=== PATIENT | female | born 1960 | race Caucasian/White ===

== ENCOUNTER → 2017-01-08 | Outpatient (CLI) | payer BC ==
[2017-01-08 10:34] LABS: BASO % 0.7 %; BASO ABS # 0.04 K/uL (0-0.2); COMPLETE YES; EOS % 3.7 %; HEMATOCRIT 43.1 % (37-47); IG% 0.3 %; LYMPH % 25.3 %; MEAN CELL VOLUME 95.1 fL (80-100); MEAN CORPUSCULAR HEMOGLOBIN 32.5 pg (25-34); MEAN CORPUSCULAR HGB CONC 34.1 g/dl (32-36); MEAN PLATELET VOLUME 14.3 fL (7.4-10.4); MONO % 7.2 %; NEUT % 62.8 %; PLATELET COUNT 169 K/uL (130-400); RED BLOOD COUNT 4.53 M/uL (4.2-5.4); WHITE BLOOD COUNT 5.94 K/uL (4.8-10.8)
[2017-01-08 12:23] LABS: CALCIUM 8.8 mg/dl (8.5-10.1)
[2017-01-08 12:25] LABS: ALT/SGPT 31 U/L (12-78); BLOOD UREA NITROGEN 13 mg/dl (7-18); BUN/CREATININE RATIO 15.2 (10-20); CARBON DIOXIDE 28 mmol/L (21-32); CHLORIDE 107 mmol/L (98-107); CHOLESTEROL 211 mg/dl (0-200); CREATININE 0.88 mg/dl (0.60-1.20); GLUCOSE 92 mg/dl (70-99); POTASSIUM 3.8 mmol/L (3.5-5.1); SODIUM 141 mmol/L (136-145); TRIGLYCERIDES 85 mg/dl (0-150); VERY LOW DENSITY LIPOPROT CALC 17 mg/dl
[2017-01-08 12:36] LABS: ALB/GLOB RATIO 1.3 (0.9-2); ALKALINE PHOSPHATASE 56 U/L (45-117); AST/SGOT 21 U/L (15-37); CHOLESTEROL/HDL RATIO 3.1; HDL CHOLESTEROL 69 mg/dl; LDL CHOLESTEROL CALCULATED 125 mg/dl
[2017-01-08 14:30] LABS: LYME DISEASE AB IGG NEG (NEG)
[2017-01-08 14:32] LABS: LYME DISEASE AB IGM NEG (NEG)
== END | disposition home or self-care (01) ==
LOC: C.LAB1850 09:40
PROVIDERS: ATTEND Physician Assistant
DX: Z00.00 Encounter for general adult medical examination without abnormal findings (principal); E55.9 Vitamin D deficiency, unspecified

== ENCOUNTER → 2017-02-07 | Outpatient (CLI) | payer BC ==
--- NOTE | 2017-02-07 12:18 | MAMMOGRAPHY REPORT ---
BILATERAL DIGITAL SCREENING MAMMOGRAM TOMOSYNTHESIS WITH CAD: 02/07/2017 CLINICAL HISTORY: Routine screening. TECHNIQUE: Bilateral breast tomosynthesis in addition to standard 2D mammography was performed. Curre nt study was also evaluated with a Computer Aided Detection (CAD) system. COMPARISON: Comparison is made to exams dated: 02/06/2016 mammogram, 02/01/2015 mammogram, 12/29/2013 m ammogram, 11/17/2012 mammogram, 11/14/2011 mammogram - [facility], and 08/19/2006. BREAST COMPOSITION: There are scattered areas of fibroglandular density in both breasts. FINDINGS: There is a new, incompletely visualized 6 mm asymmetry in the far posterior right breast, a long the posterior nipple line on the CC view. It is unclear if this projects superiorly or inferior ly on the MLO view. Additional spot compression tomosynthesis views and possibly ultrasound are bala mmended, although this asymmetry does not have definite masslike features on the tomosynthesis images . There are scattered benign-appearing calcifications bilaterally. No other suspicious mass, architectu ral distortion or cluster of microcalcifications is seen. IMPRESSION: ACR BI-RADS CATEGORY 0: INCOMPLETE EVALUATION: NEED ADDITIONAL IMAGING EVALUATION The new, incompletely visualized 6 mm asymmetry in the far posterior right breast needs additional ev aluation. The patient will be called to schedule an appointment. Approximately 10% of breast cancers are not detected with mammography. A negative mammographic report should not delay biopsy if a clinically suggestive mass is present. Palma Grace M.D. ay/:02/07/2017 12:12:02 Rehabilitation Teacher: Antoni DEE(Marianna)(M), [facility] letter sent: Addl Imaging 0 BI-RADS Code: ACR BI-RADS Category 0: Incomplete Evaluation: Need Additional Imaging Evaluation
== END | disposition home or self-care (01) ==
LOC: C.MAMM 09:16
PROVIDERS: ATTEND Obstetrics & Gynecology
DX: Z12.31 Encounter for screening mammogram for malignant neoplasm of breast (principal); N64.89 Other specified disorders of breast

== ENCOUNTER → 2017-02-12 | Outpatient (CLI) | payer BC ==
--- NOTE | 2017-02-12 12:43 | MAMMOGRAPHY REPORT ---
UNILATERAL RIGHT DIGITAL DIAGNOSTIC MAMMOGRAM TOMOSYNTHESIS AND TARGETED RIGHT ULTRASOUND: 02/12/2017 CLINICAL HISTORY: 56 year-old woman called back from screening mammography for an incompletely visual ized 6 mm asymmetry in the far posterior right breast, along the posterior nipple line on the CC view . TECHNIQUE: Spot compression right CC and MLO tomosynthesis images with reconstructed C-view were obt ained. COMPARISON: Comparison is made to exams dated: 02/07/2017 mammogram, 02/06/2016 mammogram, 02/01/2015 m ammogram, 12/29/2013 mammogram, 11/17/2012 mammogram, and 11/14/2011 mammogram - [facility] enter. BREAST COMPOSITION: There are scattered areas of fibroglandular density in the right breast. FINDINGS: There is effacement of the 6 mm asymmetry on the supplemental spot compression right CC francis osynthesis images. There is no evidence of a persistent mass or persistent architectural distortion in the far posterior aspect of the right breast. No corresponding abnormality is seen on the spot co mpression MLO tomosynthesis images. Targeted ultrasound was performed in the right breast in the 12:00, 1:00, retroareolar, 5:00 and 6:00 axes. Sonographically normal tissue is seen without a discrete solid or cystic mass. IMPRESSION: ACR-BI-RADS CATEGORY 3: PROBABLY BENIGN, TARGETED ULTRASOUND ACR-BI-RADS CATEGORY 3: PRO BABLY BENIGN There is effacement of the 6 mm asymmetry in the far posterior right breast with the spot compression tomosynthesis CC view, and no suspicious sonographic oral was identified. However, given the conspi cuous nature of the asymmetry on the screening mammogram from 02/07/2017, a short interval follow-up right diagnostic mammogram and possible ultrasound is recommended to ensure stability in 6 months. These results and recommendations were discussed with the patient at the time of the exam. She tenta tively scheduled the follow-up appointment prior to leaving our department. Approximately 10% of breast cancers are not detected with mammography. A negative mammographic report should not delay biopsy if a clinically suggestive mass is present. Palma Grace M.D. ay/:02/12/2017 11:06:21 Green Building Energy Engineer: Antonia FERNANDEZ)(Nazia), [facility] letter sent: Follow Up Recommended 3 BI-RADS Code: ACR-BI-RADS Category 3: Probably Benign Ultrasound BI-RADS: ACR-BI-RADS Category 3: Pr obably Benign
== END | disposition home or self-care (01) ==
LOC: C.MAMM 10:22
PROVIDERS: ATTEND Obstetrics & Gynecology
DX: N64.89 Other specified disorders of breast (principal)

== ENCOUNTER → 2017-09-15 | Day surgery (SDC) | payer BC, OTHER ==
[2017-09-04 08:21] VITALS: Ht 162.6 cm; Wt 77.3 kg
[~2017-09-15] VITALS: Ht 162.6 cm; Wt 77.3 kg
[~2017-09-15] MED LIST: ASCA500 PO; CHOL400T5 PO; FERR324T PO; IBUP-1050 PO; LIDOCAINE HCL 2% 2 ML VIAL (20MG/ML) ONE; PROPOFOL IV EMULSION 10 MG/ML 20 ML VIAL IV ONE; SODIUM CHLORIDE 0.9% 500ML 500 ML IV ONE
[2017-09-15 13:51] VITALS: TEMP 36.6
--- NOTE | 2017-09-15 14:08 | Endo History and Physical ---
History & Physical Date of Service: Sep 15, 2017. Chief Complaint: Family history of colon cancer (mother). Referring Physician: Nasima Linder PA-C History of Present Illness 57 yo CF who presents for colonoscopy secondary to family history of colon cancer (mother). Past Surgical History Hx Cardiac Surgery: No Hx Internal Defibrillator: No Hx Pacemaker: No Hx Abdominal Surgery: Yes (HYSTERECTOMY) Hx of Implantable Prosthesis: No Hx Post-Op Nausea and Vomiting: No Hx Cancer Surgery: No Hx Thoracic Surgery: No Hx Orthopedic: No Hx Urinary Tract Surgery: No Family History Colon CA Social History Smoking Status: Former Smoker Hx Substance Use: No Hx Alcohol Use: Yes (4-5 BEERS A WEEK) Allergies Coded Allergies: Codeine (Verified Allergy, Mild, ITCHING, 09/04/17) Uncoded Allergies: PREFUMES OR CHEMICAL SMELLS- THROAT CLOSES (Allergy, Unknown, 09/02/02) Current Medications Reported Home Medications Medications Dose Route/Sig Max Daily Dose Days Date Category Advil (Ibuprofen) 200 Mg Tab 200 Mg PO PRN 09/04/17 Reported Vitamin C (Ascorbic Acid) 500 Mg Tab 500 Mg PO QAM 09/04/17 Reported Iron Supplement (Ferrous Gluconate) 324 Mg Tab 324 Mg PO DAILY 09/04/17 Reported Vitamin D (Cholecalciferol) 400 Unit Tab 800 Units PO QAM 09/04/17 Reported Vital Signs Weight (Kilograms): 77.27 Height (Feet): 5 Height (Inches): 4 Date Time Temp Pulse Resp B/P (MAP) Pulse Ox O2 Delivery O2 Flow Rate FiO2 09/15/17 13:51 36.6 66 18 125/76 (92) 98 Room Air Physical Exam General Appearance: WD/WN, no apparent distress Respiratory/Chest: Auscultation: breath sounds normal Cardiovascular: Heart Auscultation: RRR Abdomen: Bowel Sounds: normal Inspection & Palpation: soft, non-distended, no tenderness, guarding & rebound Assessment and Plan Assessment: 57 yo CF who presents for colonoscopy secondary to family history of colon cancer (mother). Plan: Proceed with colonoscopy.
--- NOTE | 2017-09-15 14:45 | Discharge Instructions ---
Endoscopy Patient Instructions Date / Procedure(s) Performed Sep 15, 2017. Colonoscopy Allergy Information Coded Allergies: Codeine (Verified Allergy, Mild, ITCHING, 09/04/17) Uncoded Allergies: PREFUMES OR CHEMICAL SMELLS- THROAT CLOSES (Allergy, Unknown, 09/02/02) Discharge Date / Findings Sep 15, 2017. Colon polyp Diverticulosis Internal hemorrhoids Medication Instructions Stopped Medication(s): stopped supplements on Friday OK to resume all medications today as prescribed Reported Home Medications Medications Dose Route/Sig Max Daily Dose Days Date Category Advil (Ibuprofen) 200 Mg Tab 200 Mg PO PRN 09/04/17 Reported Vitamin C (Ascorbic Acid) 500 Mg Tab 500 Mg PO QAM 09/04/17 Reported Iron Supplement (Ferrous Gluconate) 324 Mg Tab 324 Mg PO DAILY 09/04/17 Reported Vitamin D (Cholecalciferol) 400 Unit Tab 800 Units PO QAM 09/04/17 Reported Provider Instructions Activity Restrictions - No exercising or heavy lifting for 24 hours. - Do not drink alcohol the day of the procedure. - Do not drive a car or operate machinery until the day after the procedure. - Do not make any important decisions or sign important papers in 24 hours after the procedure. Following Day: - Return to full activity which may include returning to work/school. Diet Start your diet with liquids and light foods (jello, soup, juice, toast). Then eat your usual diet if not nauseated. Treatment For Common After Affects For mild abdominal pain, bloating, or excessive gas: - Rest - Eat lightly - Lie on right side Follow-Up Information Follow-up with Nasima Linder PA-C as scheduled Anesthesia Information What You Should Know You have had a procedure that required some medicine to reduce anxiety and discomfort. This treatment is called moderate sedation. After receiving the treatment, you may be sleepy, but you will be able to breathe on your own. The effects of the treatment may last for several hours. Follow these instructions along with Activity/Diet recommendations noted above: * Do NOT do anything where dizziness or clumsiness would be dangerous. * Rest quietly at home today, then you can be up and about tomorrow. * Have a responsible person stay with you the rest of today. * You may have had an I.V. today. If so, you may take the dressing off later today. Recommendations Call your doctor if: * Trouble breathing * Continuous vomiting for more than 24 hours * Temperature above 101 degrees * Severe abdominal pain or bloating * Pain not relieved by pain medicine ordered * There is increased drainage or redness from any incision * A large amount of rectal bleeding greater than 2-3 tablespoons. (If you had a polyp/s removed or have hemorrhoids, a small amount of blood - from the rectum is to be expected.) * You have any unanswered questions or concerns. IN THE EVENT OF A SERIOUS EMERGENCY, GO TO THE NEAREST EMERGENCY ROOM Your discharge instructions were prepared by provider Lalit Jon. Patient Instructions Signature Page Emilee Rice Patient (or Guardian) Signature/Date: I have read and understand the instructions given to me by my caregivers. Caregiver/RN/Doctor Signature/Date: The above-named patient and/or guardian has received patient instructions on this date. + Original Patient Signature Page (only) stays with chart. Please make copy for patient.
--- NOTE | 2017-09-15 14:56 | GI REPORT ---
Procedure Date: 09/15/2017 1:53 PM Procedure: Colonoscopy Indications: Family history of colon cancer in a first-degree relative Medicines: Monitored Anesthesia Care Complications: No immediate complications. Estimated Blood Loss: Estimated blood loss: none. Procedure: Pre-Anesthesia Assessment: - Prior to the procedure, a History and Physical was performed, and patient medications and allergies were reviewed. The patient's tolerance of previous anesthesia was also reviewed. The risks and benefits of the procedure and the sedation options and risks were discussed with the patient. All questions were answered, and informed consent was obtained. Prior Anticoagulants: The patient has taken no previous anticoagulant or antiplatelet agents. ASA Grade Assessment: II - A patient with mild systemic disease. After reviewing the risks and benefits, the patient was deemed in satisfactory condition to undergo the procedure. After I obtained informed consent, the scope was passed under direct vision. Throughout the procedure, the patient's blood pressure, pulse, and oxygen saturations were monitored continuously. The On-site loaner was introduced through the anus and advanced to the terminal ileum. The colonoscopy was performed without difficulty. The patient tolerated the procedure well. The quality of the bowel preparation was good. The ileocecal valve, appendiceal orifice, and rectum were photographed. Findings: The perianal and digital rectal examinations were normal. A 5 mm polyp was found in the cecum. The polyp was sessile. The polyp was removed with a hot snare. Resection and retrieval were complete. Multiple small-mouthed diverticula were found in the sigmoid colon. Non-bleeding internal hemorrhoids were found during retroflexion. The hemorrhoids were small. Impression: - One 5 mm polyp in the cecum, removed with a hot snare. Resected and retrieved. - Diverticulosis in the sigmoid colon. - Non-bleeding internal hemorrhoids. Recommendation: - Resume previous diet. - Continue present medications. - Repeat colonoscopy for surveillance based on pathology results. - Return to primary care physician as previously scheduled. Lalit Jon, DO 09/15/2017 2:56:41 PM This report has been signed electronically. Note Initiated On: 09/15/2017 1:53 PM I attest to the content of the Intraoperative Record and orders documented therein, exceptions below
[2017-09-15 15:18] VITALS: BP 111/70; PULSE 64; O2SAT 99
--- NOTE | 2017-09-15 15:37 | Anesthesiology Progress Note ---
Anesthesia Post Op Note Date & Time Sep 15, 2017 at 15:37 Vital Signs Pain Intensity: 0 Vital Signs Past 12 Hours Date Time Temp Pulse Resp B/P (MAP) Pulse Ox O2 Delivery O2 Flow Rate FiO2 09/15/17 15:18 64 18 111/70 (84) 99 Room Air 09/15/17 15:03 67 18 116/71 (86) 99 Room Air 09/15/17 14:48 82 16 92/70 (77) 98 Room Air 09/15/17 13:51 36.6 66 18 125/76 (92) 98 Room Air Notes Mental Status: alert / awake / arousable, participated in evaluation Pt Amnestic to Procedure: Yes Nausea / Vomiting: adequately controlled Pain: adequately controlled Airway Patency, RR, SpO2: stable & adequate BP & HR: stable & adequate Hydration State: stable & adequate Anesthetic Complications: no major complications apparent
== END | disposition home or self-care (01) ==
LOC: C.GI 13:31
PROVIDERS: ATTEND Internal Medicine
DX: Z12.11 Encounter for screening for malignant neoplasm of colon (principal); D12.0 Benign neoplasm of cecum; K57.30 Diverticulosis of large intestine without perforation or abscess without bleeding; K64.8 Other hemorrhoids; Z80.0 Family history of malignant neoplasm of digestive organs; Z87.891 Personal history of nicotine dependence; Z88.5 Allergy status to narcotic agent

== ENCOUNTER → 2017-09-17 | Outpatient (CLI) | payer OTHER ==
[~2017-09-17] MED LIST changes: -LIDOCAINE HCL 2% 2 ML VIAL (20MG/ML) ONE; -PROPOFOL IV EMULSION 10 MG/ML 20 ML VIAL IV ONE; -SODIUM CHLORIDE 0.9% 500ML 500 ML IV ONE
--- NOTE | 2017-09-17 15:56 | MAMMOGRAPHY REPORT ---
UNILATERAL RIGHT DIGITAL DIAGNOSTIC MAMMOGRAM TOMOSYNTHESIS WITH CAD: 09/17/2017 CLINICAL HISTORY: 6 Month Follow-up Right. TECHNIQUE: Breast tomosynthesis in addition to standard 2D mammography was performed. Current study was also evaluated with a Computer Aided Detection (CAD) system. Right CC and MLO 2-D and tomosynthe sis images were obtained. COMPARISON: Comparison is made to exams dated: 02/12/2017 mammogram, 02/12/2017 ultrasound, 02/07/2017 mammogram, 02/06/2016 mammogram, 02/01/2015 mammogram, and 12/29/2013 mammogram - [facility]. BREAST COMPOSITION: There are scattered areas of fibroglandular density in the right breast. FINDINGS: The previously described asymmetry seen within the right posterior breast on the CC view is less prominent on the current exam and has the appearance of normal fibroglandular tissue on the cur rent tomosynthesis images. Additionally, the asymmetry appears similar to multiple prior exams inclu ding the 2011 exam. Findings are benign and compatible with normal fibroglandular tissue. The remai nder of the right breast is stable compared to prior exams, without suspicious masses, calcifications , or areas of architectural distortion noted. IMPRESSION: ACR BI-RADS CATEGORY 2: BENIGN The right breast asymmetry is less prominent and is benign and compatible with normal fibroglandular tissue. There is no mammographic evidence of malignancy. Return to annual mammogram screening schedu is recommended, due January 2018. The patient has been verbally notified of the results. Approximately 10% of breast cancers are not detected with mammography. A negative mammographic report should not delay biopsy if a clinically suggestive mass is present. Renee Almanza M.D. ah/:09/17/2017 08:25:00 Assistant Property Manager: Nitza DEE(Marianna)(M), [facility] letter sent: Normal 1/2 BI-RADS Code: ACR BI-RADS Category 2: Benign
== END | disposition home or self-care (01) ==
LOC: C.MAMM 08:06
PROVIDERS: ATTEND Obstetrics & Gynecology
DX: N64.89 Other specified disorders of breast (principal)

== ENCOUNTER → 2018-02-12 | Outpatient (CLI) | payer OTHER ==
--- NOTE | 2018-02-12 15:59 | MAMMOGRAPHY REPORT ---
BILATERAL DIGITAL SCREENING MAMMOGRAM TOMOSYNTHESIS WITH CAD: 02/12/2018 CLINICAL HISTORY: Routine screening. Patient has no complaints. TECHNIQUE: The study was acquired using full field digital technology and interpreted from soft copy. Breast tomosynthesis in addition to standard 2D mammography was performed. Current study was also ev aluated with a Computer Aided Detection (CAD) system. COMPARISON: Comparison is made to exams dated: 09/17/2017 mammogram, 02/12/2017 mammogram, 02/07/2017 m ammogram, 02/06/2016 mammogram, 02/01/2015 mammogram, and 12/29/2013 mammogram - [facility] enter. BREAST COMPOSITION: There are scattered areas of fibroglandular density in both breasts. FINDINGS: No suspicious masses, calcifications, or areas of architectural distortion are noted in either breast . There has been no significant interval change compared to prior exams. Scattered bilateral benign-a ppearing calcifications are not significantly changed. IMPRESSION: ACR BI-RADS CATEGORY 2: BENIGN There is no mammographic evidence of malignancy. A 1 year screening mammogram is recommended.( [id number]) The patient will receive written notification of the results. Some breast cancers are not detected with mammography. A negative mammographic report should not dat y biopsy if a clinically suggestive mass is present. Renee Almanza M.D. ah/:02/12/2018 09:36:21 Mixing Machine Operator: RT Pattie(R)(M), [facility] letter sent: Normal 1/2 BI-RADS Code: ACR BI-RADS Category 2: Benign
== END | disposition home or self-care (01) ==
LOC: C.MAMM 09:03
PROVIDERS: ATTEND Obstetrics & Gynecology
DX: Z12.31 Encounter for screening mammogram for malignant neoplasm of breast (principal)